=== PATIENT | male | born 1950 | race Caucasian/White ===

== ENCOUNTER → 2016-06-01 | Outpatient (CLI) | payer MEDICARE ==
--- NOTE | 2016-06-01 12:17 | XR ---
EXAMINATION TYPE: XR abdomen 1V DATE OF EXAM: 06/01/2016 12:03 PM CLINICAL HISTORY: Upper abdominal pain and diarrhea for a few weeks. Right upper quadrant pain per or paul. TECHNIQUE: 2 supine KUB images of the abdomen are obtained COMPARISON: None. FINDINGS: Scattered gas is seen in non-distended small bowel loops. Gas and fecal material is seen in non-distended colon. Scattered pelvic phleboliths are present. There is suspected to 2-3 left-side d renal calculi measuring up to 5 mm in size mid to lower pole level as superior L3 endplate. Visuali zed lung bases are clear. Visualized osseous structures are intact. IMPRESSION: Overall nonobstructive bowel gas pattern. Left-sided renal calculi suspected.
[2016-06-01 12:41] LABS: ALT 48 U/L (21-72); AST 22 U/L (17-59); Alkaline Phosphatase 90 U/L (38-126); Amylase 70 U/L (30-110); Anion Gap 11 mmol/L; Blood Urea Nitrogen 17 mg/dL (9-20); Calcium 9.5 mg/dL (8.4-10.2); Carbon Dioxide 25 mmol/L (22-30); Chloride 105 mmol/L (98-107); Cholesterol 137 mg/dL (<200); Glucose 96 mg/dL (74-99); HDL Cholesterol 31 mg/dL (40-60); Non-African American GFR(MDRD) >60 (>60 ml/min/1.73 sqM); Potassium 4.8 mmol/L (3.5-5.1); Sodium 141 mmol/L (137-145); Total Bilirubin 1.1 mg/dL (0.2-1.3); Total Protein 7.3 g/dL (6.3-8.2); Triglycerides 301 mg/dL (<150)
== END | disposition home or self-care (01) ==
LOC: LABWHC1 11:26
PROVIDERS: ATTEND Nurse Practitioner Family
DX: R19.7 Diarrhea, unspecified (principal); R10.11 Right upper quadrant pain
CPT/HCPCS: 36415; 74000; 80053; 80061; 80299; 82150; 83690; 87045; 87046; 87328; 87329

== ENCOUNTER → 2016-06-16 | Outpatient (CLI) | payer MEDICARE ==
--- NOTE | 2016-06-16 09:06 | US ---
EXAMINATION TYPE: US abdomen complete DATE OF EXAM: 06/16/2016 8:49 AM COMPARISON: XRAY in PACS CLINICAL HISTORY: R10.11 RUQ Pain. RUQ pain and bloating EXAM MEASUREMENTS: Liver Length: 16.6 cm Gallbladder Wall: 0.3 cm CBD: 0.4 cm Spleen: 13.1 cm Right Kidney: 12.8 x 5.3 x 4.9 cm Left Kidney: 12.6 x 5.5 x 5.0 cm FINDINGS: Pancreas: body wnl, head and tail obscured by bowel gas Liver: Heterogeneous with probable fatty sparing near GB Gallbladder: wnl Evidence for sonographic Quick's sign: No CBD: wnl Spleen: Mildly enlarged with small calcifications scattered throughout Right Kidney: wnl Left Kidney: No evidence of hydro, possible small 5mm calculi at lower pole as seen on previous XRAY Upper IVC: wnl Abd Aorta: Proximal portion wnl, mid and distal portions obscured by bowel gas IMPRESSION: 1. 5 mm left lower pole renal calculus with no hydronephrosis 2. Heterogeneous appearance of liver is nonspecific. Area of focal fatty sparing noted.
== END | disposition home or self-care (01) ==
LOC: RADUSWWP 08:29
PROVIDERS: ATTEND Family Medicine
DX: N20.0 Calculus of kidney (principal)
CPT/HCPCS: 76700

== ENCOUNTER → 2016-10-06 | Outpatient (CLI) | payer MEDICARE ==
--- NOTE | 2016-10-06 18:53 | CONS ---
DATE OF CONSULTATION: REASON FOR EVALUATION: Obstructive sleep apnea. This is a 66-year-old male patient referred recently to Hematology/Oncology for elevated hemoglobin of 17 to 18. As part of further investigation, a sleep apnea evaluation was requested to rule out obstructive sleep apnea. The patient reported loud snoring and he has excessive hypersomnia and sleepiness during the day. Roland score is 12. In addition, he has significant crowding of the posterior pharynx with Mallampati class IV. No recent weight gain. His current BMI is 35.9. He admits snoring. He admits waking up for nocturia. He goes to bed around 9:30 p.m., wakes up at 6:30 a.m. in the morning. No edema in the lower extremities. No recent weight gain. PAST MEDICAL HISTORY: 1. Hypertension. 2. Hyperlipidemia. 3. BPH. 4. Coronary artery disease with previous OK and coronary stenting. 5. Erythrocytosis, under investigation. Surgical history includes cardiac catheterization and stent insertion. DRUG ALLERGIES: NOT KNOWN. He has seasonal allergies. Outpatient medication list includes: 1. Flomax 0.4 mg p.o. daily. 2. Losartan 50 daily. 3. Lipitor 40 daily. 4. Aspirin 162 mg p.o. daily. 5. Citalopram 20 daily. 6. Omeprazole 20 daily. 7. Testosterone. 8. Lorazepam. 9. Ambien as needed. SOCIAL HISTORY: Nonsmoker. No history of alcoholism. No history of IV drugs. FAMILY HISTORY: Negative for sleep apnea. REVIEW OF SYSTEMS: Twelve-point review of systems was done. Positive findings were all mentioned above in the History of Present Illness. BP is 130/69. Pulse 63, respiration 16, temperature 97.6, saturation 94% on room air. Weight is 233. BMI is 35.7. Neck size 17 inches. Roland score is 12. GENERAL APPEARANCE: Calm, comfortable. HEENT: Mallampati class IV. No goiter or neck mass. LUNGS: Diminished; otherwise clear. HEART: Sounds are regular rate and rhythm. Normal S1, S2. ABDOMEN: Soft, nontender. No organomegaly. EXTREMITIES: No edema. No cyanosis or clubbing. IMPRESSION: 1. Obstructive sleep apnea suspected clinically, currently under investigation. 2. Erythrocytosis. Rule out secondary erythrocytosis that is probably related to sleep breathing disorder. 3. Hypertension. 4. Hyperlipidemia. 5. Benign prostatic hypertrophy. 6. Coronary artery disease with previous myocardial infarction. PLAN: 1. Encourage weight loss. 2. Proceed with a home sleep study to investigate the patient for obstructive sleep apnea.
== END | disposition home or self-care (01) ==
LOC: SLEEP 13:39
PROVIDERS: ATTEND Internal Medicine Critical Care Medicine
DX: N40.0 Benign prostatic hyperplasia without lower urinary tract symptoms (principal); I10 Essential (primary) hypertension; E78.5 Hyperlipidemia, unspecified; I25.10 Atherosclerotic heart disease of native coronary artery without angina pectoris; I25.2 Old myocardial infarction
CPT/HCPCS: 99204; 99211

== ENCOUNTER → 2017-02-02 | Outpatient (CLI) | payer MEDICARE ==
--- NOTE | 2017-02-02 22:39 | PN ---
PROGRESS NOTE This patient is coming in for a CPAP compliance check. The patient was initially referred to me for symptoms of secondary erythrocytosis. The patient did a home sleep study that showed an AHI of 18, worse in the supine body position, with an AHI of 25. He spent approximately 38% of his sleep time with a pulse ox of 90% and below. Based on that, I decided to treat this patient with CPAP, and I gave him a CPAP pressure of 9 cm based on his titration. On today's evaluation he is feeling okay. He is feeling somewhat better in terms of his chronic fatigue and sleepiness; however, he was expecting a bit more. Nevertheless, his compliance looks good. He is averaging around 5.1 hours of CPAP use per night and his AHI while on treatment is down to 1.7. He is using an AirFit P10 nasal pillow, and his leak factor is only at 2 L. His CPAP use for more than 4 hours is 18 out of 30, and his CPAP use in general is 27 out of 30. He is willing to use it more, knowing that he would need it for his chronic medical problems, including the secondary erythrocytosis which we think is related to his nocturnal oxygen desaturations. PHYSICAL EXAMINATION: BP is 129/72, pulse 60, respirations 16, temperature 97.8. Weight is 229. Saturation 96% on room air. GENERAL APPEARANCE: Calm, comfortable. HEENT: Short neck. Crowding of the posterior pharynx. No goiter or neck mass. LUNGS: Clear to auscultation. Heart sounds are regular rate and rhythm. Normal S1, S2. Abdomen is soft, nontender. No organomegaly. EXTREMITIES: No edema. No cyanosis or clubbing. IMPRESSION: 1. Obstructive sleep apnea, moderate in severity, worse in the supine body position. 2. Nocturnal oxygen saturation. 3. Secondary erythrocytosis. 4. Hypertension. 5. Hyperlipidemia. 6. Coronary artery disease. 7. Benign prostatic hypertrophy. PLAN: 1. Continue CPAP at the same level of pressure. 2. Eliminate RAMP. 3. Look for alternative nose masks rather than the pillows. 4. Encourage weight loss. 5. See me back in a year's time, earlier if needed. MMODL / IJN: [id number] /
== END ==
LOC: SLEEP 14:25
PROVIDERS: ATTEND Internal Medicine Critical Care Medicine
DX: D75.1 Secondary polycythemia (principal); G47.33 Obstructive sleep apnea (adult) (pediatric); I25.10 Atherosclerotic heart disease of native coronary artery without angina pectoris; I10 Essential (primary) hypertension; E78.5 Hyperlipidemia, unspecified; N40.0 Benign prostatic hyperplasia without lower urinary tract symptoms

== ENCOUNTER 2017-08-11 09:52 | Day surgery (SDC) | payer MEDICARE ==
[2017-08-09 11:41] VITALS: BMI 34.9
[~2017-08-11 09:52] MED LIST: LACTATED RINGERS 1,000 ML IV SCH
[2017-08-11 10:34] VITALS: TEMP 97.8
[2017-08-11] MEDS ORDERED: LIDOCAINE 1% 20 ML VIAL (10MG/ML) FOR IV START INTRADERMA ONE (10:41)
[2017-08-11] MEDS ORDERED: PROPOFOL 10 MG/ML 20 ML VIAL IV ONE (11:00)
[2017-08-11] MEDS ORDERED: LIDOCAINE 1% INJ 10MG/ML (20 ML MDV) ONE (11:00)
--- NOTE | 2017-08-11 11:31 | P.PCN ---
Date of Procedure: 08/11/17 Procedure(s) Performed: PREOPERATIVE DIAGNOSIS: Change in bowel habits POSTOPERATIVE DIAGNOSIS: 1. Ascending colon polyp 2 2. Diverticulosis 3. Perianal excoriation/scarring PROCEDURE: Colonoscopy with snare polypectomy and biopsy ANESTHESIA: MAC SURGEON: Luis A Tairq M.D. SPECIMENS: Ascending colon polyp, anal tissue ENDOSCOPIC PROCEDURE: The patient was placed on the endoscopy table in the left decubitus position. The Olympus colonoscope was inserted into the anus and passed under direct visualization to the base of the cecum. The appendiceal orifice was visualized. From that point the scope was slowly withdrawn inspecting all surfaces carefully. There were no neoplastic inflammatory or polypoid lesions throughout the cecum. In the ascending colon 2 small polyps are identified. One measured only about 1-2 millimeters in size. This was fulgurated. There was a polyp adjacent to that that was larger and removed using the snare with cautery technique. The remainder of the ascending transverse descending sigmoid and rectum appeared normal. There was mild left-sided diverticulosis present. Retroflexion at the anus revealed some anal scarring and a hypertrophied anal papilla. External evaluation of the anus revealed significant excoriation circumferentially with scarring. The surfaces of the anal mucosa were somewhat roughened areas. Several cold biopsies took place of the anal mucosa. No definite fissure or fistula was seen but difficult to evaluate given the scarring present. The patient was taken to the recovery room in stable condition per anesthesia guidelines. RECOMMENDATIONS: Await biopsy results. Anticipate follow-up colonoscopy 5 years. Recommend colorectal surgery evaluation of the perianal irritation and scarring.
[2017-08-11 11:36] VITALS: BP 109/69; PULSE 58; RESP 14
== END 2017-08-11 12:30 | disposition home or self-care (01) ==
LOC: ORWHC2ENDO 09:52
PROVIDERS: ATTEND Surgery
DX: D12.2 Benign neoplasm of ascending colon (principal); L90.5 Scar conditions and fibrosis of skin; K62.6 Ulcer of anus and rectum; F32.9 Major depressive disorder, single episode, unspecified; I25.2 Old myocardial infarction; K57.30 Diverticulosis of large intestine without perforation or abscess without bleeding; K21.9 Gastro-esophageal reflux disease without esophagitis; I25.10 Atherosclerotic heart disease of native coronary artery without angina pectoris; I10 Essential (primary) hypertension; E78.5 Hyperlipidemia, unspecified; Z95.5 Presence of coronary angioplasty implant and graft; K62.89 Other specified diseases of anus and rectum; Z79.82 Long term (current) use of aspirin; Z79.899 Other long term (current) drug therapy; Z79.890 Hormone replacement therapy
CPT/HCPCS: 88305; 45385; 45380; J2001; J2704

== ENCOUNTER 2019-07-29 13:06 | Inpatient (IN) | payer MEDICARE ==
[2019-07-29] MEDS ORDERED: ASPIRIN 81 MG PO STA (13:26)
[2019-07-29] MEDS ORDERED: NITROGLYCERIN OINT 1 INCH/GM PACKET TOPICAL STA (13:26)
--- NOTE | 2019-07-29 13:29 | ED ---
General Adult HPI - General Chief complaint: Chest Pain Stated complaint: SOB, Chest pain Time Seen by Provider: 07/29/19 13:13 Source: patient, family, RN notes reviewed Mode of arrival: ambulatory Limitations: no limitations - History of Present Illness Initial comments: Patient is a pleasant 69-year-old male presenting to the emergency Department with complaints of chest discomfort. Onset of symptoms was yesterday. Discomfort is described as heaviness, not pain. Patient has associated dyspnea. Symptoms do worsen with exertion. No radiation. No associated nausea or diaphoresis. Patient did have heart attack several years ago however symptoms are not quite similar to that. - Related Data Home Medications Medication Instructions Recorded Confirmed Aspirin 162 mg PO HS 08/09/17 07/29/19 Atorvastatin [Lipitor] 40 mg PO HS 08/09/17 07/29/19 Citalopram Hydrobromide [CeleXA] 20 mg PO HS 08/09/17 07/29/19 LORazepam [Ativan] 0.5 mg PO Q12H PRN 08/09/17 07/29/19 Omeprazole [PriLOSEC] 20 mg PO HS PRN 08/09/17 07/29/19 Tamsulosin [Flomax] 0.4 mg PO BID 08/09/17 07/29/19 Testosterone Cypionate 100 mg IM Q21D 08/09/17 07/29/19 [Depo-Testosterone] metFORMIN HCL [Glucophage] 500 mg PO AC-SUPPER 07/20/18 07/29/19 Losartan Potassium 50 mg PO DAILY 07/29/19 07/29/19 Zolpidem [Ambien] 10 mg PO HS PRN 07/29/19 07/29/19 Allergies Allergy/AdvReac Type Severity Reaction Status Date / Time No Known Allergies Allergy Verified 07/29/19 15:16 Review of Systems ROS Statement: Those systems with pertinent positive or pertinent negative responses have been documented in the HPI. ROS Other: All systems not noted in ROS Statement are negative. Constitutional: Denies: fever Eyes: Denies: eye pain ENT: Denies: ear pain Respiratory: Reports: as per HPI. Denies: cough Cardiovascular: Reports: as per HPI, chest pain Endocrine: Denies: fatigue Gastrointestinal: Denies: abdominal pain Genitourinary: Denies: dysuria Musculoskeletal: Denies: back pain Skin: Denies: rash Neurological: Denies: weakness Past Medical History Past Medical History: Diabetes Mellitus, GERD/Reflux, Hyperlipidemia, Hypertension, Myocardial Infarction ([place]), Prostate Disorder, Sleep Apnea/CPAP/BIPAP Additional Past Medical History / Comment(s): uses CPAP, hx. kidney stone,rectal polyps, "pre-diabetic". Type 2 diabetes diagnosed Jun 2018 Last Myocardial Infarction Date:: 2007 History of Any Multi-Drug Resistant Organisms: None Reported Past Surgical History: Heart Catheterization With Stent Additional Past Surgical History / Comment(s): colonoscopy, EGD, rectal polyp removal reconstruction Past Anesthesia/Blood Transfusion Reactions: No Reported Reaction Date of Last Stent Placement:: 2007 Past Psychological History: No Psychological Hx Reported Smoking Status: Never smoker Past Alcohol Use History: None Reported Past Drug Use History: None Reported - Past Family History Sister(s) Family Medical History: Cancer Mother Family Medical History: Deep Vein Thrombosis (DVT) General Exam Limitations: no limitations General appearance: alert, in no apparent distress Head exam: Present: normocephalic Eye exam: Present: normal appearance Neck exam: Present: normal inspection Respiratory exam: Present: normal lung sounds bilaterally. Absent: chest wall tenderness Cardiovascular Exam: Present: regular rate, normal rhythm Expanded Peripheral pulses: 2+: Radial (R), Radial (L), Posterior Tibialis (R), Posterior Tibialis (L) GI/Abdominal exam: Present: soft. Absent: distended, tenderness Extremities exam: Present: normal inspection. Absent: pedal edema, calf tenderness Neurological exam: Present: alert Psychiatric exam: Present: normal affect, normal mood Skin exam: Present: normal color Course Vital Signs 07/29/19 07/29/19 07/29/19 13:09 13:19 14:30 Temperature 97.3 F L Pulse Rate 56 L 56 L Pulse Rate [ 53 L Supine Pulse Oximetery] Respiratory 20 18 Rate Blood Pressure 165/93 158/86 O2 Sat by Pulse 99 97 Oximetry EKG Findings - EKG Comments: EKG Findings:: Sinus bradycardia 51. NC 166. QRS 84. QT 424. QTC 390. Normal axis. Septal Q waves. No acute ST change. Medical Decision Making - Medical Decision Making Patient reevaluated and resting comfortably in bed. Symptoms have improved however not completely resolved. Patient did use the restroom and still was short of breath with exertion. Patient and family updated on results and plan. Case was discussed in detail with Dr. Darby, who will admit covering for Dr. Singh. - Lab Data Result diagrams: 07/29/19 13:55 07/29/19 13:55 Lab Results 07/29/19 07/29/19 07/29/19 Range/Units 13:55 13:55 13:55 WBC 6.1 (3.8-10.6) k/uL RBC 5.82 (4.30-5.90) m/uL Hgb 16.6 (13.0-17.5) gm/dL Hct 49.2 (39.0-53.0) % MCV 84.6 (80.0-100.0) fL MCH 28.5 (25.0-35.0) pg MCHC 33.7 (31.0-37.0) g/dL RDW 13.8 (11.5-15.5) % Plt Count 214 (150-450) k/uL Neutrophils % 60 % Lymphocytes % 26 % Monocytes % 8 % Eosinophils % 2 % Basophils % 1 % Neutrophils # 3.6 (1.3-7.7) k/uL Lymphocytes # 1.6 (1.0-4.8) k/uL Monocytes # 0.5 (0-1.0) k/uL Eosinophils # 0.1 (0-0.7) k/uL Basophils # 0.0 (0-0.2) k/uL PT 10.0 (9.0-12.0) sec INR 1.0 (<1.2) APTT 25.0 (22.0-30.0) sec Sodium 136 L (137-145) mmol/L Potassium 4.1 (3.5-5.1) mmol/L Chloride 106 (98-107) mmol/L Carbon Dioxide 21 L (22-30) mmol/L Anion Gap 9 mmol/L BUN 18 (9-20) mg/dL Creatinine 0.84 (0.66-1.25) mg/dL Est GFR (CKD-EPI)AfAm >90 (>60 ml/min/1.73 sqM) Est GFR (CKD-EPI)NonAf >90 (>60 ml/min/1.73 sqM) Glucose 169 H (74-99) mg/dL Calcium 9.2 (8.4-10.2) mg/dL Magnesium 1.9 (1.6-2.3) mg/dL Total Bilirubin 1.0 (0.2-1.3) mg/dL AST 24 (17-59) U/L ALT 21 (4-49) U/L Alkaline Phosphatase 93 (38-126) U/L Troponin I (0.000-0.034) ng/mL Total Protein 6.9 (6.3-8.2) g/dL Albumin 3.9 (3.5-5.0) g/dL 07/29/19 Range/Units 13:55 WBC (3.8-10.6) k/uL RBC (4.30-5.90) m/uL Hgb (13.0-17.5) gm/dL Hct (39.0-53.0) % MCV (80.0-100.0) fL MCH (25.0-35.0) pg MCHC (31.0-37.0) g/dL RDW (11.5-15.5) % Plt Count (150-450) k/uL Neutrophils % % Lymphocytes % % Monocytes % % Eosinophils % % Basophils % % Neutrophils # (1.3-7.7) k/uL Lymphocytes # (1.0-4.8) k/uL Monocytes # (0-1.0) k/uL Eosinophils # (0-0.7) k/uL Basophils # (0-0.2) k/uL PT (9.0-12.0) sec INR (<1.2) APTT (22.0-30.0) sec Sodium (137-145) mmol/L Potassium (3.5-5.1) mmol/L Chloride (98-107) mmol/L Carbon Dioxide (22-30) mmol/L Anion Gap mmol/L BUN (9-20) mg/dL Creatinine (0.66-1.25) mg/dL Est GFR (CKD-EPI)AfAm (>60 ml/min/1.73 sqM) Est GFR (CKD-EPI)NonAf (>60 ml/min/1.73 sqM) Glucose (74-99) mg/dL Calcium (8.4-10.2) mg/dL Magnesium (1.6-2.3) mg/dL Total Bilirubin (0.2-1.3) mg/dL AST (17-59) U/L ALT (4-49) U/L Alkaline Phosphatase (38-126) U/L Troponin I <0.012 (0.000-0.034) ng/mL Total Protein (6.3-8.2) g/dL Albumin (3.5-5.0) g/dL - Radiology Data Radiology results: image reviewed (Chest x-ray shows mild coarseness of the lung markings. No heart failure or consolidation.) Disposition Clinical Impression: Chest pain Disposition: ADMITTED IP TO THIS HOSP Is patient prescribed a controlled substance at d/c from ED?: No Referrals: Prateek Singh III, MD [Primary Care Provider] - 1-2 days Decision Time: 15:53
[2019-07-29 14:05] LABS: Basophils % (A) 1 %; Eosinophils # (A) 0.1 k/uL (0-0.7); Eosinophils % (A) 2 %; HCT 49.2 % (39.0-53.0); HGB 16.6 gm/dL (13.0-17.5); Lymphocytes # (A) 1.6 k/uL (1.0-4.8); Lymphocytes % (A) 26 %; MCH 28.5 pg (25.0-35.0); MCHC 33.7 g/dL (31.0-37.0); MCV 84.6 fL (80.0-100.0); Mean Platelet Volume 7.3; Monocytes # (A) 0.5 k/uL (0-1.0); Monocytes % (A) 8 %; Neutrophils # (A) 3.6 k/uL (1.3-7.7); Neutrophils % (A) 60 %; Platelet Count 214 k/uL (150-450); RBC 5.82 m/uL (4.30-5.90); RDW 13.8 % (11.5-15.5); WBC 6.1 k/uL (3.8-10.6)
[2019-07-29 14:17] LABS: ALT 21 U/L (4-49); AST 24 U/L (17-59); African American GFR (CKD) >90 (>60 ml/min/1.73 sqM); Albumin 3.9 g/dL (3.5-5.0); Alkaline Phosphatase 93 U/L (38-126); Anion Gap 9 mmol/L; Blood Urea Nitrogen 18 mg/dL (9-20); Calcium 9.2 mg/dL (8.4-10.2); Carbon Dioxide 21 mmol/L (22-30); Chloride 106 mmol/L (98-107); Glucose 169 mg/dL (74-99); Magnesium 1.9 mg/dL (1.6-2.3); Non-African American GFR(CKD) >90 (>60 ml/min/1.73 sqM); Potassium 4.1 mmol/L (3.5-5.1); Sodium 136 mmol/L (137-145); Total Protein 6.9 g/dL (6.3-8.2)
--- NOTE | 2019-07-29 14:41 | XR ---
EXAMINATION TYPE: XR chest 2V DATE OF EXAM: 07/29/2019 COMPARISON: NONE HISTORY: Chest pressure TECHNIQUE: FINDINGS: Heart and mediastinum are normal. There is some coarsening of interstitial markings. There is no heart failure. There is no pleural effusion. Bony thorax is intact. IMPRESSION: Mild coarsening of the lung markings. No heart failure or pulmonary consolidation.
[2019-07-29] MEDS ORDERED: LORazepam 2 MG/ML INJ IV STA (16:22)
[2019-07-29] MEDS ORDERED: ZOLPIDEM 10 MG TAB PO PRN (17:00)
[2019-07-29] MEDS ORDERED: PANTOPRAZOLE 40 MG TABLET PO PRN (17:00)
[2019-07-29] MEDS ORDERED: LORazepam 0.5 MG TAB PO PRN (17:00)
[2019-07-29 17:37] LABS: Glucose,Whole Blood 137 mg/dL (75-99)
[2019-07-29] MEDS ORDERED: LOSARTAN 50 MG TAB PO SCH (18:00)
[2019-07-29] MEDS: NITROGLYCERIN OINT 1 INCH/GM PACKET TOPICAL SCH (18:10)
[2019-07-29] MEDS: metFORMIN 500 MG TAB PO SCH (18:10)
[2019-07-29] MEDS ORDERED: ACETAMINOPHEN TAB 500 MG TAB PO PRN (19:05)
[2019-07-29] MEDS ORDERED: TEMAZEPAM 15 MG CAP PO PRN (19:05)
[2019-07-29] MEDS: ATORVASTATIN 40 MG TAB PO SCH (19:54)
[2019-07-29] MEDS: TAMSULOSIN 0.4 MG CAP.ER.24H PO SCH (19:54)
[2019-07-29] MEDS: INSULIN ASPART (NovoLOG) 100 UNIT/ML VIAL SQ SCH (20:06)
[2019-07-29] MEDS ORDERED: CITALOPRAM HYDROBROMIDE 20 MG TAB PO SCH (21:00)
[2019-07-29 21:19] LABS: Glucose,Whole Blood 132 mg/dL (75-99)
--- NOTE | 2019-07-29 23:20 | HP ---
HISTORY AND PHYSICAL DATE OF SERVICE: 07/29/2019 CHIEF COMPLAINT: Chest pain. HISTORY OF PRESENT ILLNESS: This 69-year-old gentleman with a past medical history of multiple medical problems including history of diabetes type 2, history of GERD, hypertension, hyperlipidemia, myocardial infarction, history of prostate disorder, history of CAD/stent being followed by Dr. Chavo Sauceda with Dr. Singh, was complaining of chest discomfort. The patient had some heaviness and chest discomfort felt in the middle of the chest and with some shortness of breath. The patient came to [facility] and admitted to the hospital for further evaluation and treatment. There is no radiation of pain elsewhere. No history of associated symptoms. No history of associated nausea and vomiting. No diaphoresis or palpitations. PAST MEDICAL HISTORY: History of diabetes type 2, GERD, hypertension, hyperlipidemia, myocardial infarction, prostate disorder, sleep apnea, history of kidney stones, history of CAD stent. HOME MEDICATIONS: Include: 1. Ambien 30 mg q.h.s. p.r.n. 2. Testosterone 100 mg IM Q 21 days. 3. Glucophage 500 mg a.c. supper. 4. Flomax 0.4 daily b.i.d. 5. Prilosec 20 mg q.h.s. p.r.n. 6. Losartan 50 mg. 7. Ativan 0.5 mg b.i.d. p.r.n. 8. Celexa 20 mg q.h.s. 9. Lipitor 40 mg q.h.s. 10.Aspirin 160 mg p.o. q.h.s. ALLERGIES: None. FAMILY HISTORY: History of cancer in the family. SOCIAL HISTORY: No history of smoking. No history of alcohol intake. REVIEW OF SYSTEMS: ENT: No diminished vision. No diminished hearing. CARDIOVASCULAR system is as mentioned earlier. RESPIRATORY: As mentioned earlier. GI: As mentioned earlier. no dysuria or hematuria. Nervous system: No numbness or weakness. Allergy/Immunology: No asthma or hayfever. MUSCULOSKELETAL as mentioned earlier. Hematology/Oncology: No history of anemia. ENDOCRINE diabetes. CONSTITUTIONAL: As mentioned earlier. DERMATOLOGY: Negative. RHEUMATOLOGY: Negative. PSYCHIATRIC: As mentioned. PHYSICAL EXAMINATION: Alert and oriented times three. Pulse 57, blood pressure 137/80, respiration 18, temperature 97.9, pulse ox 97% on room air. HEENT: Conjunctivae are normal. Oral mucosa moist. NECK is no jugular venous distention. No carotid bruit. No lymph node enlargement. Cardiovascular system: S1, S2 muffled. Bradycardic otherwise. No S3, no S4. RESPIRATORY: Breath sounds diminished in the bases. No rhonchi. No crackles. ABDOMEN: Soft, obese, nontender. No mass palpable. Legs no edema. No swelling. NERVOUS SYSTEM: Higher functions as mentioned earlier. Moves all 4 limbs. No focal motor or sensory deficits. SKIN: No ulcer. No rash. No bleeding. JOINTS: No active deforming arthropathy. LABS: CBC within normal limits. INR 1, PT is 10, sodium is 136, potassium 4.1, glucose 169. ASSESSMENT: 1. Chest discomfort, possibly unstable angina. 2. Shortness of breath, rule out congestive heart failure. 3. Diabetes mellitus type 2. 4. Mild hyponatremia. 5. Gastroesophageal reflux disease. 6. Hypertension. 7. Hyperlipidemia. 8. History of sinus bradycardia. 9. History of myocardial infarction. 10.History of prostate disorder. 11.History of sleep apnea. 12.History of CAD/stent. 13.Obesity with body mass of 34.6. 14.FULL CODE. RECOMMENDATIONS AND DISCUSSION: This 69-year-old gentleman who presented with multiple complex medical issues, we will monitor the patient closely, continue the current medications, management and to rule out myocardial infarction. Cardiology consultation and possible stress test. I would also recommend a 2D echo with Doppler and BNP also. A chest x-ray which was done in the ER and personally reviewed by me showed some increased bronchovascular markings. The CHF needs to be ruled out. Guarded prognosis. Further recommendations to follow. MMODL / IJN: [id number] /
[2019-07-30] MEDS: NITROGLYCERIN OINT 1 INCH/GM PACKET TOPICAL SCH ×2 (00:38→04:59)
[2019-07-30 06:03] LABS: Glucose,Whole Blood 105 mg/dL (75-99)
[2019-07-30] MEDS: INSULIN ASPART (NovoLOG) 100 UNIT/ML VIAL SQ SCH ×2 (06:07→12:48)
[2019-07-30 07:17] LABS: Basophils % (A) 1 %; Eosinophils # (A) 0.1 k/uL (0-0.7); Eosinophils % (A) 2 %; HGB 16.2 gm/dL (13.0-17.5); Lymphocytes # (A) 2.1 k/uL (1.0-4.8); Lymphocytes % (A) 27 %; MCH 29.1 pg (25.0-35.0); MCHC 33.7 g/dL (31.0-37.0); MCV 86.5 fL (80.0-100.0); Mean Platelet Volume 7.7; Monocytes # (A) 0.6 k/uL (0-1.0); Monocytes % (A) 8 %; Neutrophils # (A) 4.5 k/uL (1.3-7.7); Neutrophils % (A) 59 %; Platelet Count 196 k/uL (150-450); RBC 5.55 m/uL (4.30-5.90); RDW 13.9 % (11.5-15.5); WBC 7.6 k/uL (3.8-10.6)
[2019-07-30 07:24] LABS: African American GFR (CKD) >90 (>60 ml/min/1.73 sqM); Anion Gap 8 mmol/L; Blood Urea Nitrogen 18 mg/dL (9-20); Carbon Dioxide 25 mmol/L (22-30); Chloride 103 mmol/L (98-107); Glucose 104 mg/dL (74-99); Non-African American GFR(CKD) 89 (>60 ml/min/1.73 sqM); Potassium 4.5 mmol/L (3.5-5.1); Sodium 136 mmol/L (137-145)
[2019-07-30 07:54] LABS: Cholesterol 149 mg/dL (<200); HDL Cholesterol 25 mg/dL (40-60); LDL Cholesterol,Calculated 62 mg/dL (0-99); Triglycerides 308 mg/dL (<150)
[2019-07-30] MEDS: CITALOPRAM HYDROBROMIDE 20 MG TAB PO SCH (08:43)
[2019-07-30] MEDS: TAMSULOSIN 0.4 MG CAP.ER.24H PO SCH ×2 (08:43→20:30)
[2019-07-30] MEDS ORDERED: ASPIRIN 325 MG TAB PO SCH (09:00)
[2019-07-30] MEDS ORDERED: LOSARTAN 50 MG TAB PO SCH ×2 (09:00→18:00)
[2019-07-30] MEDS: NITROGLYCERIN SL TABS 0.4 MG TAB SUBLINGUAL PRN ×2 (09:23→09:35)
[2019-07-30] MEDS ORDERED: LORazepam 1 MG TAB PO PRN (09:57)
[2019-07-30] MEDS ORDERED: LORazepam 0.5 MG TAB PO ONE (09:57)
--- NOTE | 2019-07-30 10:48 | P.CRDCN ---
History of Present Illness History of present illness: HISTORY OF PRESENTING ILLNESS This is a pleasant 69-year-old male past medical history significant for coronary artery disease in the setting of a myocardial infarction status post PCI and stent placement in 2007 while living in [place], hypertension, dyslipidemia, diabetes mellitus and obstructive sleep apnea. He follows in the office with Dr. Puckett. We have been asked to see in consultation for chest pain. He states he had a heavy workout on at the [facility] and woke up Wednesday feeling generalized fatigue, tightness in the chest and exertional shortness of breath. His symptoms were rather persistent and ongoing all day Wednesday. He checked his blood pressure couple different times at home and it was elevated 180s and 160 systolic. Wednesday morning he woke up feeling ongoing chest discomfort and shortness of breath prompting him to come to the hospital f or further evaluation. Per the patient is last stress test was approximately 2 years ago in the office. DIAGNOSTICS EKG reveals sinus bradycardia with poor R-wave progression no acute ST changes. Repeat EKG this morning was having ongoing chest pain unremarkable. Chest xray mild coarsening of the lung markings no obvious heart failure pulmonary consolidation Laboratory reviewed, BC unremarkable, sodium 136, potassium 4.1, creatinine 0.84, cardiac enzymes negative 3, LDL 62, HDL 25 and triglycerides 308. Current cardiac medications include aspirin 162 mg at bedtime, atorvastatin 40 mg daily, losartan 50 mg daily. REVIEW OF SYSTEMS At the time of my exam: CONSTITUTIONAL: Denies fever or chills. CARDIOVASCULAR: Denies chest pain, shortness of breath, orthopnea, PND or palpitations. RESPIRATORY: Denies cough. GASTROINTESTINAL: Denies abdominal pain, diarrhea, constipation, nausea or v omiting. MUSCULOSKELETAL: Denies myalgias. NEUROLOGIC: Denies numbness, tingling or weakness. ENDOCRINE: Denies fatigue, weight change, polydipsia or polyurina. GENITOURINARY: Denies burning, hematuria or urgency with micturation. HEMATOLOGIC: Denies history of anemia or bleeding. PHYSICAL EXAMINATION Blood pressure 117/62 heart rate 47 afebrile and maintaining oxygen saturation on room air. CONSTITUTIONAL: No apparent distress. HEENT: Head is normocephalic. Pupils are equal, round. Sclerae anicteric. Mucous membranes of the mouth are moist. No JVD. No carotid bruit. CHEST EXAMINATION: Lungs are clear to auscultation. No chest wall tenderness is noted on palpation or with deep breathing. HEART EXAMINATION: Regular rate and rhythm. S1, S2 heard. No murmurs, gallops or rub. ABDOMEN: Soft, nontender. Positive bowel sounds. EXTREMITIES: 2+ peripheral pulses, no lower extremity edema and no calf tenderness. NEUROLOGIC EXAMINATION: Patient is awake, alert and oriented x3. ASSESSMENT Chest pain, an acute coronary event has been ruled out. History of coronary artery disease status post PCI 2007 - of a non-ST elevated myocardial infarction Hypertension Dyslipidemia Diabetes mellitus Obstructive sleep apnea with regular CPAP use Sinus bradycardia PLAN An acute coronary event has been ruled out. Proceed with Cardiolite stress test in the morning to assess for progression of coronary artery disease. If any reversibility noted we will proceed with coronary angiography. Obtain 2-D echocardiogram and Doppler study to assess cardiac structure and function. Decrease aspirin to 81 mg daily. Thank you kindly for this consultation. Nurse Practitioner note has been reviewed, I agree with a documented findings and plan of care. Patient was seen and examined. Past Medical History Past Medical History: Diabetes Mellitus, GERD/Reflux, Hyperlipidemia, Hypertension, Myocardial Infarction (ID), Prostate Disorder, Sleep Apnea/CPAP/BIPAP Additional Past Medical History / Comment(s): uses CPAP, hx. kidney stone,rectal polyps, "pre-diabetic". Type 2 diabetes diagnosed Jun 2018 Last Myocardial Infarction Date:: 2007 History of Any Multi-Drug Resistant Organisms: None Reported Past Surgical History: Heart Catheterization With Stent Additional Past Surgical History / Comment(s): colonoscopy, EGD, rectal polyp removal reconstruction Past Anesthesia/Blood Transfusion Reactions: No Reported Reaction Date of Last Stent Placement:: 2007 Past Psychological History: No Psychological Hx Reported Smoking Status: Never smoker Past Alcohol Use History: None Reported Past Drug Use History: None Reported - Past Family History Sister(s) Family Medical History: Cancer Mother Family Medical History: Deep Vein Thrombosis (DVT) Medications and Allergies Home Medications Medication Instructions Recorded Confirmed Type Aspirin 162 mg PO HS 08/09/17 07/29/19 History Atorvastatin [Lipitor] 40 mg PO HS 08/09/17 07/29/19 History Citalopram Hydrobromide [CeleXA] 20 mg PO HS 08/09/17 07/29/19 History LORazepam [Ativan] 0.5 mg PO Q12H PRN 08/09/17 07/29/19 History Omeprazole [PriLOSEC] 20 mg PO HS PRN 08/09/17 07/29/19 History Tamsulosin [Flomax] 0.4 mg PO BID 08/09/17 07/29/19 History Testosterone Cypionate 100 mg IM Q21D 08/09/17 07/29/19 History [Depo-Testosterone] metFORMIN HCL [Glucophage] 500 mg PO AC-SUPPER 07/20/18 07/29/19 History Losartan Potassium 50 mg PO DAILY 07/29/19 07/29/19 History Zolpidem [Ambien] 10 mg PO HS PRN 07/29/19 07/29/19 History Allergies Allergy/AdvReac Type Severity Reaction Status Date / Time No Known Allergies Allergy Verified 07/29/19 15:16 Physical Exam Vitals: Vital Signs Temp Pulse Pulse Resp BP BP Pulse Ox 07/30/19 08:00 97.7 F 47 L 16 117/62 98 07/30/19 04:00 98.3 F 48 L 16 130/74 96 07/30/19 00:00 98 F 54 L 18 114/60 94 L 07/29/19 20:00 98.2 F 50 L 16 119/55 97 07/29/19 17:07 98.1 F 48 L 16 139/79 95 07/29/19 17:00 97.9 F 57 L 18 137/80 97 07/29/19 16:32 97.9 F 51 L 16 132/85 95 07/29/19 16:00 97.8 F 52 L 18 145/88 97 07/29/19 14:30 56 L 18 158/86 97 07/29/19 13:19 53 L 07/29/19 13:09 97.3 F L 56 L 20 165/93 99 Intake and Output 07/29/19 07/30/19 07/30/19 21:59 06:59 14:59 Intake Total Balance Intake: Oral Other: # Voids Weight Results 07/30/19 05:43 07/30/19 05:43 Cardiac Enzymes 07/29/19 07/29/19 07/29/19 Range/Units 13:55 13:55 19:19 AST 24 (17-59) U/L Troponin I <0.012 <0.012 (0.000-0.034) ng/mL 07/30/19 Range/Units 01:32 AST (17-59) U/L Troponin I <0.012 (0.000-0.034) ng/mL Coagulation 07/29/19 Range/Units 13:55 PT 10.0 (9.0-12.0) sec APTT 25.0 (22.0-30.0) sec Lipids 07/30/19 Range/Units 05:43 Triglycerides 308 H (<150) mg/dL Cholesterol 149 (<200) mg/dL HDL Cholesterol 25 L (40-60) mg/dL CBC 07/29/19 07/30/19 Range/Units 13:55 05:43 WBC 6.1 7.6 (3.8-10.6) k/uL RBC 5.82 5.55 (4.30-5.90) m/uL Hgb 16.6 16.2 (13.0-17.5) gm/dL Hct 49.2 48.0 (39.0-53.0) % Plt Count 214 196 (150-450) k/uL Comprehensive Metabolic Panel 07/29/19 07/30/19 Range/Units 13:55 05:43 Sodium 136 L 136 L (137-145) mmol/L Potassium 4.1 4.5 (3.5-5.1) mmol/L Chloride 106 103 (98-107) mmol/L Carbon Dioxide 21 L 25 (22-30) mmol/L BUN 18 18 (9-20) mg/dL Creatinine 0.84 0.88 (0.66-1.25) mg/dL Glucose 169 H 104 H (74-99) mg/dL Calcium 9.2 9.0 (8.4-10.2) mg/dL AST 24 (17-59) U/L ALT 21 (4-49) U/L Alkaline Phosphatase 93 (38-126) U/L Total Protein 6.9 (6.3-8.2) g/dL Albumin 3.9 (3.5-5.0) g/dL Current Medications Generic Name Dose Route Start Last Admin Trade Name Freq PRN Reason Stop Dose Admin Acetaminophen 500 mg 07/29/19 19:05 Tylenol Tab PO Q6HR PRN Fever and/ or Pain Aspirin 325 mg 07/30/19 09:00 07/30/19 08:43 Aspirin PO 325 mg DAILY MERLY Administration Atorvastatin Calcium 40 mg 07/29/19 21:00 07/29/19 19:54 Lipitor PO 40 mg HS MERLY Administration Citalopram Hydrobromide 20 mg 07/30/19 09:00 07/30/19 08:43 Celexa PO 20 mg DAILY MERLY Administration Insulin Aspart 0 unit 07/29/19 21:00 07/30/19 06:07 Novolog SQ Not Given ACHS [facility] Protocol Lorazepam 0.5 mg 07/29/19 17:00 Ativan PO Q12H PRN Anxiety Losartan Potassium 50 mg 07/30/19 18:00 Cozaar PO DAILY@1800 [facility] Metformin HCl 500 mg 07/29/19 17:30 07/29/19 18:10 Glucophage PO 500 mg AC-SUPPER [facility] Administration Nitroglycerin 0.4 mg 07/29/19 15:53 Nitrostat SUBLINGUAL Q5M PRN Chest Pain Nitroglycerin 1 inch 07/29/19 18:00 07/30/19 04:59 Nitro-Bid Oint TOPICAL Not Given Q6HR [facility] Pantoprazole Sodium 40 mg 07/29/19 17:00 07/29/19 20:01 Protonix PO 40 mg HS PRN Administration GERDS Sodium Chloride 10 ml 07/29/19 21:00 07/30/19 08:45 Saline Flush IV 10 ml BID [facility] Administration Tamsulosin HCl 0.4 mg 07/29/19 21:00 07/30/19 08:43 Flomax PO 0.4 mg BID [facility] Administration Temazepam 15 mg 07/29/19 19:05 Restoril PO HS PRN Insomnia Zolpidem Tartrate 10 mg 07/29/19 17:00 Ambien PO HS PRN Insomnia Intake and Output 07/29/19 07/30/19 07/30/19 21:59 06:59 14:59 Intake Total Balance Intake: Oral Other: # Voids Weight 07/30/19 05:43 07/30/19 05:43
[2019-07-30] MEDS: metFORMIN 500 MG TAB PO SCH (17:23)
[2019-07-30] MEDS: ATORVASTATIN 40 MG TAB PO SCH (20:30)
[2019-07-30 20:35] VITALS: RESP 16
--- NOTE | 2019-07-30 21:28 | PN ---
PROGRESS NOTE DATE OF SERVICE: 07/30/2019 This 69-year-old gentleman who was admitted after chest discomfort is being evaluated by Cardiology. Myocardial infarction has been ruled out. Cardiology planning a cardiac stress test in the morning. No chest pain. No palpitations. No fever. PHYSICAL EXAMINATION: Alert and oriented x3. The pulse is 56, blood pressure 140/80, respiration 14, temperature 97.8, pulse ox 97% on room air. HEENT: Conjunctivae normal. Oral mucosa moist. NECK: No jugular venous distention. No lymph node enlargement. CARDIOVASCULAR: S1, S2. RESPIRATORY: Diminished breath sounds at the bases. No rhonchi, no crackles. ABDOMEN: Soft, nontender. LEGS: No edema, no swelling. NERVOUS SYSTEM: No focal deficits. LAB STUDIES: CBC within normal. Sodium 136. Cholesterol 149, triglycerides 308. ASSESSMENT: 1. Chest discomfort, possible unstable angina for stress test tomorrow. 2. Shortness of breath, rule out congestive heart failure. 3. Diabetes mellitus type 2. 4. Hypertriglyceridemia. 5. Mild hyponatremia. 6. Gastroesophageal reflux disease. 7. Hypertension. 8. Hyperlipidemia. 9. History of sinus bradycardia. 10.History of myocardial infarction. 11.History of prostate disorder. 12.History of sleep apnea. 13.History of coronary artery disease, stent. 14.Obesity with body mass index of 34.6. 15.FULL CODE. RECOMMENDATIONS AND DISCUSSION: Recommend to continue current medications, continue symptomatic treatment. Otherwise, at this time monitor closely and closely follow with Cardiology. Stress test tomorrow. Guarded prognosis. Further recommendations to follow. MMODL / IJN: [id number] /
[2019-07-31 06:45] LABS: Basophils # (A) 0.1 k/uL (0-0.2); Basophils % (A) 1 %; Eosinophils # (A) 0.1 k/uL (0-0.7); Eosinophils % (A) 2 %; HCT 52.4 % (39.0-53.0); HGB 16.8 gm/dL (13.0-17.5); Lymphocytes # (A) 1.8 k/uL (1.0-4.8); Lymphocytes % (A) 26 %; MCH 27.5 pg (25.0-35.0); MCHC 32.1 g/dL (31.0-37.0); MCV 85.6 fL (80.0-100.0); Mean Platelet Volume 7.5; Monocytes # (A) 0.6 k/uL (0-1.0); Monocytes % (A) 8 %; Neutrophils # (A) 4.2 k/uL (1.3-7.7); Neutrophils % (A) 60 %; Platelet Count 212 k/uL (150-450); RBC 6.12 m/uL (4.30-5.90); RDW 13.9 % (11.5-15.5); WBC 6.9 k/uL (3.8-10.6)
[2019-07-31 06:53] LABS: Calcium 9.4 mg/dL (8.4-10.2); Potassium 4.3 mmol/L (3.5-5.1)
[2019-07-31] MEDS ORDERED: ASPIRIN 81 MG PO SCH (09:00)
--- NOTE | 2019-07-31 11:58 | EST ---
EXERCISE STRESS AGE: 69 SEX: Male HT: 68 WT: 230 PROTOCOL: Can STAGE: III DURATION OF EXERCISE: 7 minutes HEART RATE REST: 57 BLOOD PRESSURE REST: 138/85 MAXIMUM HEART RATE ACHIEVED: 15 MAXIMUM BLOOD PRESSURE: 172/67 85% MPHR: 129 100% MPHR: 153 METS: 8 INDICATIONS: Chest pain. CLINICAL INFORMATION: Baseline EKG shows sinus rhythm, normal axis, normal intervals with poor R-wave progression. Patient exercised on Can protocol for a total of 7 minutes achieving 8 METs, 85% of predicted maximal heart rate without chest pain. At peak exercise there were 0.[address]-segment depression noted in the inferolateral leads. CONCLUSIONS: 1. Above-average exercise tolerance. 2. Abnormal stress test by EKG criteria. MEGHAN / ALICEN: [id number] /
[2019-07-31 12:05] VITALS: BP 134/74; PULSE 54; TEMP 98.6
--- NOTE | 2019-07-31 12:08 | NM ---
EXAMINATION TYPE: NM stress cardiolite complete DATE OF EXAM: 07/31/2019 COMPARISON: 06/08/2013 HISTORY: 69-year-old male with chest pressure, chest pain, difficulty breathing, high cholesterol, di abetes, hypertension, prior ND, family history. TECHNIQUE: After the intravenous administration of 9.5 mCi Tc 99m Sestamibi - Rest images obtained 4 5 minutes post injection. The patient exercised using a TATIANA protocol and 1 minute prior to peak e xercise was injected with 25.1 mCi Tc 99m Sestamibi - Stress images obtained 15 minutes post injectio n. FINDINGS: Targeted heart rate (129 bpm) was achieved during performance of the study. Heart rate achieved was 1 53 BPM. Total exercise time 7 minutes 19 seconds. Review of stress and rest SPECT images demonstrates moderate-sized fixed perfusion defect along the i nferior wall. Rest images shows a defect along the lateral apex not present on stress imaging suggest ing attenuation artifact. No definite reversibility is seen. Gated analysis with left ventricular ejection fraction during stress calculated twice, first time com puter yielded 41% and the second time 49%. TID is calculated at 0.60, within normal limits. IMPRESSION: 1. Fixed defect along the inferior wall suggests either an area of old infarct or prominent diaphragm atic attenuation. No suspicious reversibility seen. 2. LVEF during stress was calculated twice. First time, the computer yielded 41% and the second time 49%. Further evaluation as indicated.
--- NOTE | 2019-07-31 12:13 | PN ---
PROGRESS NOTE Mr. Nogueira is a 69-year-old male who presented with symptoms of chest discomfort. His cardiac enzyme were unremarkable. He is doing well this morning, ambulating without difficulty. Denying any chest pain. No dizziness. No palpitation. No nausea. He continued to be on aspirin once a day, Lipitor 40 mg daily, losartan 50 mg daily, metformin 500 mg twice a day. PHYSICAL EXAMINATION: Blood pressure 124/70 with the heart rate in the 60s. LUNGS: Clear. HEART: Regular rate and rhythm. S1, S2. No S3. No rub. ABDOMEN: Soft, nontender. EXTREMITIES: No edema. LAB DATA: Lab data revealed a BUN and creatinine 21 and 1.04, potassium 4.3, hemoglobin 16.8. IMPRESSION: 1. Symptoms of chest pain in a patient known history of coronary artery disease. No evidence of myocardial infarction. 2. Hypertension. 3. Hyperlipidemia. 4. Diabetes mellitus. RECOMMENDATION: We will proceed with a myocardial perfusion imaging today if there is no evidence of inducible ischemia, he should be able to be discharged home and followed as an outpatient. MMODL / IJN: [id number] /
[2019-07-31] MEDS: TAMSULOSIN 0.4 MG CAP.ER.24H PO SCH (12:57)
[2019-07-31] MEDS: CITALOPRAM HYDROBROMIDE 20 MG TAB PO SCH (12:57)
--- NOTE | 2019-08-01 09:02 | P.DS ---
Providers Date of admission: 07/31/19 07:54 Expected date of discharge: 07/31/19 Attending physician: Keyona Darby Consults: 07/29/19 15:53 Consult Physician Urgent Consulting Provider: Chris Barksdale Consult Reason/Comments: cp Do you want consulting provider notified?: Yes Primary care physician: Prateek Casanova [facility] Course: Final diagnosis Chest discomfort, possible unstable angina Shortness of breath, ruled out congestive heart failure Diabetes mellitus type 2 Hypertriglyceridemia Mild hyponatremia Gastroesophageal reflux disease Hypertension Hyperlipidemia History of sinus bradycardia history of myocardial infarction history of prostate disorder history of sleep apnea history of coronary artery disease, stent obesity with body mass index of 34.6 Full code Discharge disposition Patient is being discharged in stable condition with guarded prognosis to home and will follow-up with Dr. Singh upon discharge. Patient will also follow-up with cardiology Dr. Puckett in one week. Total time taken is 35 minutes. History of present illness This is a 69-year-old male who was recently admitted for chest discomfort and was being closely monitored. Cardiology is following. Patient underwent a stress test which was negative and patient will be following up with cardiology in the outpatient setting in 1 week. Patient will continue taking a baby aspirin daily along with his losartan which will be increased to 100 mg daily and his Lipitor. Currently no reports of chest pain, shortness of breath, or palpitations. Patient is afebrile. No reports of nausea or vomiting and patient is tolerating diet. Guarded prognosis. On exam vital signs are stable. Temp is 98.6 F, pulse is 54, respirations are 16, blood pressure is 134/74, oxygen saturation is 96% on room air. Cardio S1, S2 are muffled. Respiratory system shows diminished breath sounds at the bases with no rhonchi or wheezing noted. Abdomen is soft and nontender. Nervous system shows no focal deficits. Please refer to medication reconciliation sheet for a list of medications. Patient Condition at Discharge: Stable Plan - Discharge Summary Discharge Rx Participant: No New Discharge Prescriptions: New Aspirin 81 mg PO DAILY chew Continue LORazepam [Ativan] 0.5 mg PO Q12H PRN PRN Reason: Anxiety Tamsulosin [Flomax] 0.4 mg PO BID Omeprazole [PriLOSEC] 20 mg PO HS PRN PRN Reason: GERDS Citalopram Hydrobromide [CeleXA] 20 mg PO HS Atorvastatin [Lipitor] 40 mg PO HS Testosterone Cypionate [Depo-Testosterone] 100 mg IM Q21D metFORMIN HCL [Glucophage] 500 mg PO AC-SUPPER Zolpidem [Ambien] 10 mg PO HS PRN PRN Reason: Insomnia Changed Losartan Potassium 100 mg PO DAILY 30 Days #30 tab Discontinued Aspirin 162 mg PO HS Discharge Medication List Atorvastatin [Lipitor] 40 mg PO HS 08/09/17 [History] Citalopram Hydrobromide [CeleXA] 20 mg PO HS 08/09/17 [History] LORazepam [Ativan] 0.5 mg PO Q12H PRN 08/09/17 [History] Omeprazole [PriLOSEC] 20 mg PO HS PRN 08/09/17 [History] Tamsulosin [Flomax] 0.4 mg PO BID 08/09/17 [History] Testosterone Cypionate [Depo-Testosterone] 100 mg IM Q21D 08/09/17 [History] metFORMIN HCL [Glucophage] 500 mg PO AC-SUPPER 07/20/18 [History] Zolpidem [Ambien] 10 mg PO HS PRN 07/29/19 [History] Aspirin 81 mg PO DAILY chew 07/31/19 [Rx] Losartan Potassium 100 mg PO DAILY 30 Days #30 tab 07/31/19 [Rx] Follow up Appointment(s)/Referral(s): John Puckett MD [STAFF PHYSICIAN] - 08/08/19 3:00 pm (With Ambika LEBLANC) Prateek Singh III, MD [Primary Care Provider] - 1-2 days Patient Instructions/Handouts: Chest Pain (DC), Heart Healthy Diet (DC), Nuclear Stress Test (DC) Activity/Diet/Wound Care/Special Instructions: Activity Limited until follow-up Follow-up with primary care provider upon discharge Cardiology in one week Continue current diet Discharge Disposition: HOME SELF-CARE
--- NOTE | 2019-08-09 11:00 | ECHOF ---
Referral Reason:shortness of breath MEASUREMENTS -------- HEIGHT: 172.7 cm WEIGHT: 103.0 kg BP: 147/75 RVIDd: 3.3 cm (< 3.3) IVSd: 1.5 cm (0.6 - 1.1) LVIDd: 4.7 cm (3.9 - 5.3) LVPWd: 1.4 cm (0.6 - 1.1) IVSs: 1.9 cm LVIDs: 3.2 cm LVPWs: 1.9 cm LA Diam: 3.7 cm (2.7 - 3.8) LAESV Index (A-L): 22.12 ml/m Ao Diam: 3.3 cm (2.0 - 3.7) AV Cusp: 2.2 cm (1.5 - 2.6) MV EXCURSION: 11.106 mm (> 18.000) MV EF SLOPE: 60 mm/s (70 - 150) EPSS: 0.6 cm MV E Daryl: 0.77 m/s MV DecT: 220 ms MV A Daryl: 0.63 m/s MV E/A Ratio: 1.22 RAP: 5.00 mmHg RVSP: 21.36 mmHg FINDINGS -------- Sinus rhythm. This was a technically adequate study. The left ventricular size is normal. There is moderate concentric left ventricular hypertrophy. O verall left ventricular systolic function is normal with, an EF between 55 - 60 %. The right ventricle is mildly enlarged. Normal LA size by volume 22+/-6 ml/m2. The right atrium is normal in size. Interatrial and interventricular septum intact. There is mild aortic valve sclerosis. No mitral regurgitation. Mild tricuspid regurgitation present. Right ventricular systolic pressure is normal at < 35 mmHg. The pulmonic valve was not well visualized. The aortic root size is normal. Normal inferior vena cava with normal inspiratory collapse consistent with estimated right atrial pre ssure of 5 mmHg. There is no pericardial effusion. CONCLUSIONS -------- 1. Sinus rhythm. 2. This was a technically adequate study. 3. The left ventricular size is normal. 4. There is moderate concentric left ventricular hypertrophy. 5. Overall left ventricular systolic function is normal with, an EF between 55 - 60 %. 6. The right ventricle is mildly enlarged. 7. Normal LA size by volume 22+/-6 ml/m2. 8. The right atrium is normal in size. 9. Interatrial and interventricular septum intact. 10. There is mild aortic valve sclerosis. 11. No mitral regurgitation. 12. Mild tricuspid regurgitation present. 13. Right ventricular systolic pressure is normal at < 35 mmHg. 14. The pulmonic valve was not well visualized. 15. The aortic root size is normal. 16. Normal inferior vena cava with normal inspiratory collapse consistent with estimated right atrial pressure of 5 mmHg. 17. There is no pericardial effusion. SOLUTION STRATEGIST: Giselle Yoo RDCS
== END 2019-07-31 14:22 | disposition home or self-care (01) | DRG 303 ==
LOC: EC 13:06 → 3SCARD 15:53 → OBSVTOIN 07-31 07:54
PROVIDERS: ADMIT Hospitalist; ATTEND Hospitalist
DX: I25.110 Atherosclerotic heart disease of native coronary artery with unstable angina pectoris (principal); E87.1 Hypo-osmolality and hyponatremia; I10 Essential (primary) hypertension; Z95.5 Presence of coronary angioplasty implant and graft; E66.9 Obesity, unspecified; Z68.34 Body mass index [BMI] 34.0-34.9, adult; R00.1 Bradycardia, unspecified; N42.9 Disorder of prostate, unspecified; E11.9 Type 2 diabetes mellitus without complications; E78.1 Pure hyperglyceridemia; E78.5 Hyperlipidemia, unspecified; G47.33 Obstructive sleep apnea (adult) (pediatric); Z99.89 Dependence on other enabling machines and devices; I25.2 Old myocardial infarction; K21.9 Gastro-esophageal reflux disease without esophagitis; Z79.82 Long term (current) use of aspirin; Z79.84 Long term (current) use of oral hypoglycemic drugs; Z79.899 Other long term (current) drug therapy; Z80.9 Family history of malignant neoplasm, unspecified; Z87.442 Personal history of urinary calculi; Z87.19 Personal history of other diseases of the digestive system
CPT/HCPCS: 36415; 71046; 78452; 80048; 80053; 80061; 83735; 84484; 85025; 85610; 85730; 93005; 93017; 93306; 96374; 99285

== ENCOUNTER → 2020-01-05 | Outpatient (CLI) | payer MEDICARE ==
[2020-01-05 11:52] LABS: HCT 49.9 % (39.0-53.0); HGB 16.1 gm/dL (13.0-17.5); MCH 28.3 pg (25.0-35.0); MCHC 32.2 g/dL (31.0-37.0); MCV 87.8 fL (80.0-100.0); Mean Platelet Volume 7.7; Platelet Count 249 k/uL (150-450); RBC 5.68 m/uL (4.30-5.90); RDW 14.1 % (11.5-15.5); WBC 7.7 k/uL (3.8-10.6)
[2020-01-05 12:35] LABS: Potassium 4.4 mmol/L (3.5-5.1)
== END | disposition home or self-care (01) ==
LOC: LABPAT 10:04
PROVIDERS: ATTEND Internal Medicine
DX: Z01.818 Encounter for other preprocedural examination (principal); R06.02 Shortness of breath
CPT/HCPCS: 36415; 80051; 82565; 84520; 85027

== ENCOUNTER 2020-01-10 10:53 | Day surgery (SDC) | payer MEDICARE ==
[2020-01-05 18:05] VITALS: BMI 34.9
[~2020-01-10 10:53] MED LIST changes: +ALPRAZolam 0.25 MG TAB PO PRN; +ALPRAZolam 0.5 MG TAB PO PRN; +ASPIRIN 325 MG TAB PO STA; +ATORVASTATIN 80 MG TAB PO STA; -LACTATED RINGERS 1,000 ML IV SCH; +NITROGLYCERIN SL TABS 0.4 MG TAB SUBLINGUAL PRN; +SODIUM CHLORIDE 0.9% 1,000 ML in EMPTY BAG 1 BAG IV ONE
[2020-01-10 11:18] VITALS: RESP 16; TEMP 98.2
[2020-01-10] MEDS ORDERED: LIDOCAINE 1% INJ 10MG/ML (20 ML MDV) ONE (12:18)
[2020-01-10] MEDS ORDERED: VERAPAMIL 2.5 MG/ML 2 ML AMP ONE (12:18)
[2020-01-10] MEDS ORDERED: fentaNYL (PF) 50 MCG/ML 2 ML AMP ONE (12:28)
[2020-01-10] MEDS ORDERED: MIDAZOLAM 2 MG/2 ML VIAL IVP ONE (12:34)
[2020-01-10] MEDS ORDERED: fentaNYL (PF) 50 MCG/ML 2 ML AMP IVP ONE (12:34)
[2020-01-10] MEDS ORDERED: LIDOCAINE 1% INJ 10MG/ML (20 ML MDV) SQ ONE (12:37)
[2020-01-10] MEDS: VERAPAMIL SYRINGE (5 MG/10 ML) INTRAARTER ONE ×2 (12:38→12:59)
[2020-01-10] MEDS ORDERED: HEPARIN SODIUM 1,000 UN/ML (10ML VL) ONE (12:40)
[2020-01-10] MEDS ORDERED: HEPARIN SODIUM 1,000 UN/ML (10ML VL) IV ONE (12:42)
[2020-01-10] MEDS ORDERED: IOPAMIDOL-370 125ML BTL INJ ONE (12:58)
[2020-01-10] MEDS ORDERED: RX INFO: IV CONTRAST WAS GIVEN 1 EACH MISC MISCELLANE PRN (13:09)
[2020-01-10] MEDS ORDERED: ZOLPIDEM 10 MG TAB PO PRN (13:12)
[2020-01-10] MEDS ORDERED: SODIUM CHLORIDE 0.9% 1,000 ML IV SCH (13:15)
[2020-01-10 13:46] VITALS: PULSE 48
[2020-01-10 14:00] LABS: Glucose,Whole Blood 115 mg/dL (75-99)
[2020-01-10 14:28] VITALS: BP 125/62
[2020-01-10] MEDS ORDERED: TAMSULOSIN 0.4 MG CAP.ER.24H PO SCH (21:00)
[2020-01-10] MEDS ORDERED: ATORVASTATIN 40 MG TAB PO SCH (21:00)
[2020-01-10] MEDS ORDERED: PANTOPRAZOLE 40 MG TABLET PO SCH (21:00)
[2020-01-10] MEDS ORDERED: ASPIRIN 325 MG TAB PO SCH (21:00)
[2020-01-10] MEDS ORDERED: LOSARTAN 50 MG TAB PO SCH (21:00)
[2020-01-11] MEDS ORDERED: CITALOPRAM HYDROBROMIDE 20 MG TAB PO SCH (09:00)
--- NOTE | 2020-01-16 09:38 | P.CARDCATH ---
Date of Procedure: 01/10/20 Preoperative Diagnosis: Class 3 angina, prior history of coronary artery disease with PCI Postoperative Diagnosis: Same as above, Class III angina, Coronary artery disease Procedure(s) Performed: Left heart catheterization, bilateral coronary angiography Anesthesia: local Surgeon: Tyrell Macias Estimated Blood Loss (ml): 15 Condition: stable Disposition: observation Indications for Procedure: Class III angina with coronary artery disease and prior PCI Operative Findings: Summary: Mild nonobstructive coronary artery disease as described below. Coronary anatomy: Left main: Left main is a large caliber vessel which is short and bifurcates into LAD and circumflex. No significant stenosis. LAD: LAD is a large caliber vessel which wraps around the apex and gives off 2 moderate caliber diagonal branches.The proximal LAD has a 20-30% stenosis in the mid LAD has a 30% stenosis at the level of diagonal 1. There is bridging of the mid LAD and mild luminal irregularities of the remainder of the LAD. Diagonal 1 and diagonal to have proximal 30% stenosis. Circumflex: Circumflex is a moderate caliber vessel that gives off a large caliber OM1 branch then becomes a small vessel in the AV groove without significant stenosis. RCA: The RCA is a large caliber vessel which is dominant and gives rise to PDA and PLV. There is an ostial 30-40% RCA stenosis followed by a proximal 30% stenosis and mild luminal irregularities of the remainder of the RCA. LV: 125/4, LVEDP 7mmHg Description of Procedure: Mr Nogueira is a pleasant 69-year-old male with a history of coronary artery disease status post PCI approximately 12 years ago who has been experiencing increased dyspnea on exertion concerning for an anginal equivalent. He admits to associated diaphoresis and has had workup over the past 6 months including negative stress test. Given persistent symptoms and no other source of his dyspnea including a pulmonology workup, patient was referred for heart catheterization. The procedure's risks, benefits and potential complications were discussed with the patient in full detail and patient was agreement. Procedure: Patient was brought to the catheterization lab in fasting state. After receiving fentanyl and Versed in achieving moderate conscious sedation, Xylocaine anesthesia was used to anesthetize the right radial artery. Using Seldinger technique a 6 Israeli sheath was introduced into the right radial artery. Heparin 5000 units was given. Selective right and left coronary angiography was performed using a 6 Israeli FR 5 catheter and a 5 Israeli FL 3.5 catheter in various views. The FR 5 was advanced into the left ventricle and pressure measurements were obtained. The catheter and wires were removed. The right radial sheath was removed and a TR band was placed with hemostasis achieved. Patient tolerated the procedure well and was returned to the post catheterization holding area in stable condition. Duration of the procedure is 24 minutes.
== END 2020-01-10 16:03 | disposition home or self-care (01) ==
LOC: CATHCVL 10:53
PROVIDERS: ATTEND Internal Medicine
DX: I25.119 Atherosclerotic heart disease of native coronary artery with unspecified angina pectoris (principal); R06.09 Other forms of dyspnea; R06.02 Shortness of breath; R53.83 Other fatigue; R00.0 Tachycardia, unspecified; R07.89 Other chest pain; R94.39 Abnormal result of other cardiovascular function study; R61 Generalized hyperhidrosis; I49.5 Sick sinus syndrome; I10 Essential (primary) hypertension; E78.5 Hyperlipidemia, unspecified; E11.9 Type 2 diabetes mellitus without complications; G47.33 Obstructive sleep apnea (adult) (pediatric); Z95.5 Presence of coronary angioplasty implant and graft; Z99.89 Dependence on other enabling machines and devices; Z79.82 Long term (current) use of aspirin; Z79.899 Other long term (current) drug therapy; Z82.49 Family history of ischemic heart disease and other diseases of the circulatory system
CPT/HCPCS: 93458; C1887; C1769; C1894; J2250; J2001; J3010; J1644; Q9967

== ENCOUNTER → 2020-05-08 | Outpatient (CLI) | payer MEDICARE | END | disposition home or self-care (01) | LOC: LABWHC1 16:02 | PROVIDERS: ATTEND Family Medicine | DX: Z20.828 Contact with and (suspected) exposure to other viral communicable diseases (principal) | CPT/HCPCS: U0003; C9803 ==

== ENCOUNTER → 2021-03-20 | Outpatient (CLI) | payer MEDICARE ==
--- NOTE | 2021-03-24 14:19 | US ---
EXAMINATION TYPE: US kidneys/renal and bladder DATE OF EXAM: 03/20/2021 COMPARISON: US dated 06/16/2016 CLINICAL HISTORY: R31.1 Micro Hematuria. EXAM MEASUREMENTS: Right Kidney: 11.4 x 5.4 x 4.7 cm Left Kidney: 11.8 x 5.8 x 5.4 cm Right Kidney: Question some mild hydronephrosis, no masses seen Left Kidney: No hydronephrosis or masses seen Bladder: prominent prostate suspected indenting bladder wall at the inferior aspect There is no evidence for hydronephrosis at this point in time. No nephrolithiasis is seen. No darci s are identified. Cortical medullary differentiation is maintained. The urinary bladder is anechoic. Bilateral ureteral jets are seen. Incidental splenic enlargement identified as noted on prior ultrasound. IMPRESSION: Findings thought to represent prostate enlargement extending into the inferior aspect of the urinary bladder, correlate. There may be some mild right-sided hydronephrosis. Stable splenomegaly.
== END | disposition home or self-care (01) ==
LOC: RADUSWWP 13:49
PROVIDERS: ATTEND Urology
DX: N40.0 Benign prostatic hyperplasia without lower urinary tract symptoms (principal); R16.1 Splenomegaly, not elsewhere classified
CPT/HCPCS: 76770

== ENCOUNTER 2021-04-07 13:17 | Day surgery (SDC) | payer MEDICARE ==
[2021-04-04 12:05] VITALS: BMI 28.4
--- NOTE | 2021-04-07 10:40 | P.HPIHPCON ---
History of Present Illness H&P Date: 04/07/21 Chief Complaint: Left-sided renal stone This is a 71-year-old male with history of a 7 mm left-sided renal pelvis stones. He is symptomatic from his stone. Option of left-sided ESWL was discussed with him. Risk and benefit of surgery were discussed. He understood all the risk and agreed to proceed Consent for Procedure: I have explained the operation/procedure to the patient, including the risks, benefits, side effects, alternative therapies (including not receiving the proposed treatment or service), the likelihood of the patient achieving his/her goals, and potential recuperation problems for the procedure/sedation/analgesia, as well as any blood products, if indicated. I also explained to the patient the risks, benefits and side effects of the alternatives, as well as the risks related to not receiving the proposed procedure, care, treatment, or services. - Constitutional Constitutional: Denies chills, Denies fever - EENT Ears, nose, mouth and throat: Denies headache, Denies sore throat - Gastrointestinal Gastrointestinal: Denies abdominal pain, Denies diarrhea, Denies nausea, Denies vomiting Past Medical History Past Medical History: Diabetes Mellitus, GERD/Reflux, Hyperlipidemia, Hypertension, Myocardial Infarction ([place]), Prostate Disorder, Sleep Apne a/CPAP/BIPAP Additional Past Medical History / Comment(s): sleep apnea, htn and diabetes resolved with wt loss., kidney stones., rectal polyps, Last Myocardial Infarction Date:: 2007 History of Any Multi-Drug Resistant Organisms: None Reported Past Surgical History: Heart Catheterization With Stent Additional Past Surgical History / Comment(s): colonoscopy, EGD, rectal polyp removal with reconstruction, nasal surgery for fx Past Anesthesia/Blood Transfusion Reactions: No Reported Reaction Date of Last Stent Placement:: 2007 Past Psychological History: Anxiety Smoking Status: Never smoker Past Alcohol Use History: None Reported Past Drug Use History: None Reported - Past Family History Sister(s) Family Medical History: Cancer Additional Family Medical History / Comment(s): breast cancer Mother Family Medical History: Deep Vein Thrombosis (DVT) Additional Family Medical History / Comment(s): "phlebitis leg" 1979 Father Family Medical History: CVA/TIA, Myocardial Infarction ([place]) Medications and Allergies Home Medications Medication Instructions Recorded Confirmed Type Atorvastatin [Lipitor] 20 mg PO HS 08/09/17 04/04/21 History Citalopram Hydrobromide [CeleXA] 20 mg PO HS 08/09/17 04/04/21 History LORazepam [Ativan] 0.5 mg PO DIRECTED PRN 08/09/17 04/04/21 History Omeprazole [PriLOSEC] 20 mg PO HS 08/09/17 04/04/21 History Tamsulosin [Flomax] 0.8 mg PO HS 08/09/17 04/04/21 History Testosterone Cypionate 150 mg IM DIRECTED 08/09/17 04/04/21 History [Depo-Testosterone] Zolpidem [Ambien] 10 mg PO HS PRN 07/29/19 04/04/21 History Tadalafil [Cialis] 5 mg PO HS 01/05/20 04/04/21 History Aspirin 81 mg PO DAILY 04/04/21 04/04/21 History Finasteride [Proscar] 5 mg PO HS 04/04/21 04/04/21 History Ketorolac [Toradol] 10 mg PO DIRECTED PRN 04/04/21 04/04/21 History Oxycontin -New Script 1 dose PO DIRECTED PRN 04/04/21 History Vinegar Gummy 1 tab PO DAILY 04/04/21 History traMADol HCL [Ultram] 50 mg PO Q6HR PRN 04/04/21 04/04/21 History Allergies Allergy/AdvReac Type Severity Reaction Status Date / Time No Known Allergies Allergy Verified 04/04/21 11:30 Surgical - Exam - General moderate distress, moderate pain - Eyes PERRL, normal ocular movement - ENT normal nares, normal mucosa - Respiratory normal expansion, normal respiratory effort Assessment and Plan Assessment: 71-year-old male with history of 7 mm left-sided renal pelvis stone Or for left-sided ESWL
[~2021-04-07 13:17] MED LIST changes: -ALPRAZolam 0.25 MG TAB PO PRN; -ALPRAZolam 0.5 MG TAB PO PRN; -ASPIRIN 325 MG TAB PO STA; -ATORVASTATIN 80 MG TAB PO STA; +LACTATED RINGERS 1,000 ML IV SCH; -NITROGLYCERIN SL TABS 0.4 MG TAB SUBLINGUAL PRN; -SODIUM CHLORIDE 0.9% 1,000 ML in EMPTY BAG 1 BAG IV ONE
[2021-04-07 13:58] VITALS: TEMP 98.4
--- NOTE | 2021-04-07 13:59 | XR ---
EXAMINATION TYPE: XR KUB DATE OF EXAM: 04/07/2021 COMPARISON: None INDICATION: Lithotripsy TECHNIQUE: Single view abdomen supine view FINDINGS: There is a normal bowel gas pattern. Psoas margins are normal. No organomegaly is present. There is a 0.7 cm calcification just above the left L3 transverse process. Fluid levels within the pe lvis. IMPRESSION: 1. Left ureteral calcification at the level of the L3 transverse process.
[2021-04-07] MEDS ORDERED: fentaNYL (PF) 50 MCG/ML 2 ML AMP IVP ONE (14:05)
[2021-04-07] MEDS ORDERED: MIDAZOLAM 2 MG/2 ML VIAL ONE (14:10)
[2021-04-07] MEDS ORDERED: LIDOCAINE 1% INJ 10MG/ML (20 ML MDV) ONE (14:10)
[2021-04-07] MEDS ORDERED: FUROSEMIDE 10 MG/ML 2 ML VIAL ONE (14:10)
[2021-04-07] MEDS ORDERED: PROPOFOL 10 MG/ML 20 ML VIAL IV ONE (14:10)
[2021-04-07] MEDS ORDERED: KETAMINE 10 MG/ML 20 ML VIAL ONE (14:10)
[2021-04-07] MEDS ORDERED: fentaNYL (PF) 50 MCG/ML 2 ML AMP ONE (14:10)
--- NOTE | 2021-04-07 14:46 | P.OP ---
Date of Procedure: 04/07/21 Preoperative Diagnosis: Left ureteral calculus with colic Postoperative Diagnosis: Same Procedure(s) Performed: Shockwave lithotripsy left, 2500 shocks at energy level IV Anesthesia: MAC Surgeon: Salomón Sahu Pathology: none sent Condition: stable Disposition: PACU Indications for Procedure: The patient is 71. He has an 8 mm proximal ureteral stone on the left is severe colic he comes for shockwave lithotripsy Description of Procedure: Patient brought the operating table. He's placed on the lithotripsy table supine position. The stone was seen in 2 views of fluoroscopy. The patient's given IV sedation. 2500 shocks at energy level IV administered. 10 mg of Lasix was given. Then the procedure the stone seems to have dispersed nicely. The patient is awakened and returned recovery room in good condition he'll be discharged home upon recovery and follow in the office in one week.
[2021-04-07 14:57] VITALS: RESP 16
[2021-04-07 15:33] VITALS: BP 196/86; PULSE 66
== END 2021-04-07 15:43 | disposition home or self-care (01) ==
LOC: ORWHC2ENDO 13:17
PROVIDERS: ATTEND Urology
DX: N20.1 Calculus of ureter (principal)
CPT/HCPCS: 50590; 74018; J2250; J1940; J2001; J3010; J2704

== ENCOUNTER → 2023-01-21 | Outpatient (CLI) | payer MEDICARE ==
[2023-01-22 01:51] LABS: Basophils # (A) 0.06 X 10*3/uL (0.00-0.10); Basophils % (A) 0.8 %; Eosinophils # (A) 0.19 X 10*3/uL (0.04-0.35); Eosinophils % (A) 2.4 %; HCT 50.9 % (39.6-50.0); HGB 16.4 d/dL (13.0-17.0); Lymphocytes # (A) 2.04 X 10*3/uL (0.90-5.00); Lymphocytes % (A) 26.2 %; MCH 28.1 pg (27.0-32.0); MCHC 32.2 d/dL (32.0-37.0); MCV 87.3 FL (80.0-97.0); Mean Platelet Volume 9.8 FL (9.5-12.2); Monocytes # (A) 0.77 X 10*3/uL (0.20-1.00); Monocytes % (A) 9.9 %; NRBC Per 100 WBC 0 X 10*3/uL (0.00-0.01); Neutrophils # (A) 4.69 X 10*3/uL (1.80-7.70); Neutrophils % (A) 60.3 %; Platelet Count 237 X 10*3/uL (140-440); RBC 5.83 X 10*6/uL (4.40-5.60); RDW 14.1 % (11.5-14.5); WBC 7.78 X 10*3/uL (4.50-10.00)
[2023-01-22 01:54] LABS: BUN/Creat Ratio 10.33 Ratio (12.00-20.00); Blood Urea Nitrogen 12.4 mg/dL (9.0-27.0); Calcium 9.3 mg/dL (8.7-10.3); Carbon Dioxide 24.2 mmol/L (21.6-31.8); Chloride 104 mmol/L (96-109); Glucose 119 mg/dL (70-110); Potassium 4.6 mmol/L (3.5-5.5); Sodium 139 mmol/L (135-145)
== END | disposition home or self-care (01) ==
LOC: LABWHC1 14:21
PROVIDERS: ATTEND Orthopaedic Surgery
DX: Z01.812 Encounter for preprocedural laboratory examination (principal); M23.91 Unspecified internal derangement of right knee
CPT/HCPCS: 36415; 80048; 85025

== ENCOUNTER → 2023-02-10 | Outpatient (CLI) | payer MEDICARE ==
[2023-02-10 16:30] LABS: Basophils # (A) 0.07 X 10*3/uL (0.00-0.10); Eosinophils # (A) 0.22 X 10*3/uL (0.04-0.35); HCT 51.6 % (39.6-50.0); HGB 16.3 d/dL (13.0-17.0); Lymphocytes # (A) 1.68 X 10*3/uL (0.90-5.00); Lymphocytes % (A) 23.2 %; MCH 28.1 pg (27.0-32.0); MCHC 31.6 d/dL (32.0-37.0); MCV 88.8 FL (80.0-97.0); Mean Platelet Volume 10.1 FL (9.5-12.2); Monocytes # (A) 0.75 X 10*3/uL (0.20-1.00); Monocytes % (A) 10.3 %; NRBC Per 100 WBC 0 X 10*3/uL (0.00-0.01); Neutrophils # (A) 4.51 X 10*3/uL (1.80-7.70); Neutrophils % (A) 62.2 %; Platelet Count 213 X 10*3/uL (140-440); RBC 5.81 X 10*6/uL (4.40-5.60); RDW 15.1 % (11.5-14.5); WBC 7.25 X 10*3/uL (4.50-10.00)
[2023-02-10 16:49] LABS: ALT 19 U/L (10-49); AST 17 U/L (14-35); Albumin 4.3 d/dL (3.8-4.9); Albumin/Globulin Ratio 2.05 Ratio (1.60-3.17); Alkaline Phosphatase 97 U/L (41-126); BUN/Creat Ratio 7.64 Ratio (12.00-20.00); Blood Urea Nitrogen 8.4 mg/dL (9.0-27.0); Calcium 9.4 mg/dL (8.7-10.3); Carbon Dioxide 25.1 mmol/L (21.6-31.8); Chloride 103 mmol/L (96-109); Chol/HDL Ratio 4.29 Ratio; Globulin 2.1 d/dL (1.6-3.3); Glucose 107 mg/dL (70-110); Magnesium 1.9 mg/dL (1.5-2.4); Potassium 4.6 mmol/L (3.5-5.5); Prostate Specific Antigen 2.97 ng/mL (0.000-6.500); Sodium 138 mmol/L (135-145); Total Bilirubin 0.9 mg/dL (0.3-1.2); Total Protein 6.4 d/dL (6.2-8.2)
== END | disposition home or self-care (01) ==
LOC: LABWHC1 09:44
PROVIDERS: ATTEND Nurse Practitioner Adult Health
DX: I10 Essential (primary) hypertension (principal); E78.5 Hyperlipidemia, unspecified; R73.03 Prediabetes
CPT/HCPCS: 36415; 80053; 80061; 83036; 83735; 84153; 84443; 85025

== ENCOUNTER 2023-09-29 11:23 | Day surgery (SDC) | payer MEDICARE ==
--- NOTE | 2023-09-28 08:40 | P.HPOR ---
History of Present Illness H&P Date: 09/28/23 Subjective: This is a 73 year old male that presents today for follow up evaluation regarding a several month history of right ring finger locking and catching. He had an injection back in February with 4 months of relief but noticed his symptoms have returned. He denies any new injury. Physical Examination: RUE: AIN/PIN/Radial/Ulnar/Median motor intact. Radial/Ulnar/Median SILT. 2+/4 Radial/Ulnar pulses palpated. 5/5 APB, 5/5 FDI. Negative Finkelsteins, negative CMC grind, negative Durkan's compression. RRF TTP over A1 mary alice with locking/catching present. Impression: 1.) Right ring finger stenosing tenosynovitis Plan: Diagnosis and treatment options were discussed with the patient. He wishes to pursue a right ring finger A1 mary alice release. Risks and benefits of surgery including bleeding, infection, damage to surrounding tissue, need for further surgery, residual numbness were discussed and the patient wished to go forward with surgery. The patient is agreeable with this plan. Follow up: PRN CC: Emil Arriaga MD -Mane Keller DO Orthopedic Hand/Upper Extremity Surgeon Past Medical History Past Medical History: Diabetes Mellitus, GERD/Reflux, Hyperlipidemia, Hypertension, Myocardial Infarction ([place]), Prostate Disorder, Sleep Apnea/CPAP/BIPAP Additional Past Medical History / Comment(s): sleep apnea-use cpap,, kidney stones., colon polyps, Last Myocardial Infarction Date:: 2007 History of Any Multi-Drug Resistant Organisms: None Reported Past Surgical History: Heart Catheterization With Stent Additional Past Surgical History / Comment(s): colonoscopy jun 2023 EGD, rectal polyp removal with reconstruction, nasal surgery for fx Past Anesthesia/Blood Transfusion Reactions: No Reported Reaction Date of Last Stent Placement:: 2007 Smoking Status: Never smoker - Past Family History Sister(s) Family Medical History: Cancer Additional Family Medical History / Comment(s): breast cancer Mother Family Medical History: Deep Vein Thrombosis (DVT) Additional Family Medical History / Comment(s): "phlebitis leg" 1979 Father Family Medical History: CVA/TIA, Myocardial Infarction ([place]) Additional Family Medical History / Comment(s): CVA x2 Medications and Allergies Home Medications Medication Instructions Recorded Confirmed Type Atorvastatin [Lipitor] 20 mg PO HS 08/09/17 09/24/23 History Citalopram Hydrobromide [CeleXA] 20 mg PO HS 08/09/17 09/24/23 History LORazepam [Ativan] 0.5 mg PO DAILY PRN 08/09/17 09/24/23 History Omeprazole [PriLOSEC] 20 mg PO HS 08/09/17 09/24/23 History Tamsulosin [Flomax] 0.8 mg PO HS 08/09/17 09/24/23 History Zolpidem [Ambien] 10 mg PO HS PRN 07/29/19 09/24/23 History tadalafiL [Cialis] 5 mg PO HS 01/05/20 09/24/23 History Aspirin 81 mg PO DAILY 04/04/21 09/24/23 History Finasteride [Proscar] 5 mg PO HS 04/04/21 09/24/23 History Losartan [Cozaar] 50 mg PO HS 02/15/23 09/24/23 History metFORMIN HCL [Metformin HCl] 250 mg PO HS 09/24/23 09/24/23 History Allergies Allergy/AdvReac Type Severity Reaction Status Date / Time No Known Allergies Allergy Verified 09/24/23 14:27 Physical Examination Osteopathic Statement: *. No significant issues noted on an osteopathic structural exam other than those noted in the History and Physical/Consult.
[~2023-09-29 11:23] MED LIST changes: +HYDROmorphone 0.5 MG/0.5 ML SYRINGE IVP PRN; -LACTATED RINGERS 1,000 ML IV SCH; +Pre Op ABX Message 1 EACH MISC MISCELLANE ONE
[2023-09-29] MEDS: LACTATED RINGERS 1,000 ML IV SCH (11:47)
[2023-09-29] MEDS ORDERED: ONDANSETRON 4 MG/2 ML VIAL ONE (11:57)
[2023-09-29 12:10] VITALS: TEMP 98.3
[2023-09-29] MEDS: ONDANSETRON 4 MG/2 ML VIAL IVP ONE (12:10)
[2023-09-29] MEDS: DEXAMETHASONE SOD PHOSPHATE 4 MG/ML 1 ML VIAL IVP ONE (12:11)
[2023-09-29 12:13] LABS: Glucose,Whole Blood 135 mg/dL (70-110)
[2023-09-29] MEDS ORDERED: MIDAZOLAM 2 MG/2 ML VIAL ONE (12:25)
[2023-09-29] MEDS ORDERED: PROPOFOL 10 MG/ML 20 ML VIAL IV ONE (12:25)
[2023-09-29] MEDS ORDERED: fentaNYL (PF) 50 MCG/ML 2 ML AMP ONE (12:25)
[2023-09-29] MEDS: BUPIVACAINE (PF) 0.5% 30 ML VIAL SQ ONE (12:35)
[2023-09-29] MEDS: LIDOCAINE 2% INJ 20 MG/ML SQ ONE (12:35)
--- NOTE | 2023-09-29 12:48 | P.OP ---
Date of Procedure: 09/29/23 Preoperative Diagnosis: Right ring finger trigger finger Postoperative Diagnosis: Right ring finger trigger finger Procedure(s) Performed: Right ring finger A1 mary alice release Anesthesia: MAC Surgeon: Mane Keller Estimated Blood Loss (ml): 0 Pathology: none sent Condition: stable Disposition: PACU Description of Procedure: This is a 73 year old male who presents today for a right ring finger trigger finger A1 mary alice release after having failed conservative treatment. Risks and benefits of surgery were discussed with the patient including bleeding, damage to surrounding tissue, infection, need for further surgery as well as risks of anesthesia including pulmonary embolism and even and the patient wished to proceed with surgical intervention. The patient was seen in the pre-operative area by myself. Consent and H&P were completed and updated. The correct extremity was marked in the pre-operative area by myself and all other questions were answered. Operative Narrative: The patient was brought to the operating room by the department of anesthesia. They remained on the portable stretcher and a rolling hand table was brought to the side of the operative extremity. Pre-operative time out was performed indicating the correct patient, procedure and laterality. All in the room agreed. Pre-operative antibiotics were given prior to skin incision. The patient was then drifted off to sleep by the department of anesthesia. MAC anesthesia was utilized and a 50:50 mixture of 1% Lidocaine and 0.5% bupivacaine was injected into the subcutaneous tissues of the palmar skin, 4ccs total. A nonsterile tourniquet was then applied to the operative extremity and the right upper extremity was then prepped and draped in normal sterile fashion. The operative extremity was the exsanguinated with an esmarch bandage and the tourniquet was inflated to 250mmHg. Oblique incision was made at the base of the ring finger. Blunt dissection was taken down to the level of the A1 mary alice. Ragnell retractors were placed both radially and ulnarly to protect neurovascular bundles. Littler tenotomy scissors were then used to release the A1 mary alice from proximal to distal under direct visualization. Proximal fascial attachments were released. The tendon was then taken through range of motion and no locking or catching was appreciated. The wound was then closed with interrupted 4-0 nylon sutures in a horizontal mattress fashion. Sterile dressing consisting of adaptic, 4x4s, webril, and an valdo wrap was applied. Tourniquet was let down and the hand was immediately well perfused. The patient was then woken by the department of anesthesia and tra nsferred to PACU in stable condition. Mane Keller D.O. Orthopedic Hand/Upper Extremity Surgeon
[2023-09-29 13:16] LABS: Glucose,Whole Blood 109 mg/dL (70-110)
[2023-09-29 13:42] VITALS: BP 138/83; PULSE 55; RESP 16
== END 2023-09-29 13:40 | disposition home or self-care (01) ==
LOC: OR 11:23
PROVIDERS: ATTEND Orthopaedic Surgery Hand Surgery
DX: M65.341 Trigger finger, right ring finger (principal); E11.9 Type 2 diabetes mellitus without complications; E78.5 Hyperlipidemia, unspecified; G47.30 Sleep apnea, unspecified; I10 Essential (primary) hypertension; I25.2 Old myocardial infarction; K21.9 Gastro-esophageal reflux disease without esophagitis; Z79.84 Long term (current) use of oral hypoglycemic drugs; Z79.899 Other long term (current) drug therapy
CPT/HCPCS: 26055; J2001; J2250; J1100; J2405; J3010; J2704; J0665

== ENCOUNTER → 2024-08-03 | Outpatient (CLI) | payer MEDICARE ==
--- NOTE | 2024-08-03 11:28 | MR ---
EXAMINATION TYPE: MR knee LT wo con DATE OF EXAM: 08/03/2024 COMPARISON: NONE HISTORY: Chronic left knee pain, no trauma TECHNIQUE: Multiplanar, multisequence images of the knee is performed without IV contrast. FINDINGS: MEDIAL MENISCUS: Oblique signal posterior horn extends to inferior articular surface. LATERAL MENISCUS: Anterior and posterior horns are intact without tear. CRUCIATE LIGAMENTS: The anterior and posterior cruciate ligaments are intact and unremarkable. COLLATERAL LIGAMENTS: The medial collateral ligament and lateral collateral ligament complex are inta ct and unremarkable. EXTENSOR MECHANISM: Visualized quadriceps and patellar tendons are intact. EFFUSION: Small suprapatellar joint effusion. POPLITEAL CYST: No popliteal/deutsch cyst. TRICOMPARTMENT SPACES: Mild to moderate tricompartment joint space loss. Mild tricompartment spurring . CARTILAGE: Some cartilaginous loss medial tibiofemoral compartment. No significant chondromalacia pat esteban. BONE MARROW SIGNAL: No focal abnormal marrow signal is appreciated. OTHER: No additional significant abnormality is appreciated. IMPRESSION: 1. 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 2. Full-thickness tear posterior horn medial meniscus. 3. Small-size suprapatellar joint effusion. [facility], , 08/03/2024 11:25 AM
== END | disposition home or self-care (01) ==
LOC: RADMRIMAIN 09:37
PROVIDERS: ATTEND Orthopaedic Surgery
DX: M23.222 Derangement of posterior horn of medial meniscus due to old tear or injury, left knee (principal); M17.12 Unilateral primary osteoarthritis, left knee; M25.462 Effusion, left knee